=== PATIENT | male | born 1985 | race Caucasian/White ===

== ENCOUNTER 2017-03-09 18:16 | Emergency (ER) | payer SELFPAY ==
[~2017-03-09] VITALS: Ht 180.3 cm; Wt 88.9 kg
[2017-03-09] MEDS ORDERED: IBUPROFEN 600 MG TABLET PO ONE ×2 (18:59→19:00)
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
--- NOTE | 2017-03-09 20:00 | NUR ---
Patient discharged to home in stable condition. Written and verbal after care instructions given. Patient verbalizes understanding of instruction. Patient is ambulatory with steady gait, no further complaints.
[2017-03-09 20:02] VITALS: BP 125/74
== END 2017-03-09 20:04 | disposition home or self-care (01) ==
LOC: ER 18:18
DX: S10.93XA Contusion of unspecified part of neck, initial encounter (principal); S50.11XA Contusion of right forearm, initial encounter; S80.212A Abrasion, left knee, initial encounter; S80.211A Abrasion, right knee, initial encounter; V42.5XXA Car driver injured in collision with two- or three-wheeled motor vehicle in traffic accident, initial encounter; Y93.89 Activity, other specified; Y92.488 Other paved roadways as the place of occurrence of the external cause; Y99.8 Other external cause status
CPT/HCPCS: 73080-TC; 73090-TC; A4606; Z7610